=== PATIENT | female | born 1975 ===

== ENCOUNTER 2023-12-16 07:44 | Day surgery (SDC) | payer OTHER ==
[~2023-12-16] VITALS: Ht 165.1 cm; Wt 58.1 kg
[2023-12-16] MEDS ORDERED: fentaNYL citrate 0.05 MG/ML VIAL ONE (08:33)
[2023-12-16] MEDS ORDERED: LIDOCAINE 2% 100 MG/5 ML UJET TP ONE (08:33)
[2023-12-16] MEDS ORDERED: fentaNYL citrate 0.05 MG/ML VIAL IVP ONE (09:50)
== END 2023-12-16 10:20 | disposition home or self-care (01) ==
LOC: MMU 07:44 → MDS 07:44
PROVIDERS: ATTEND Internal Medicine Gastroenterology
DX: Z12.11 Encounter for screening for malignant neoplasm of colon (principal); K57.30 Diverticulosis of large intestine without perforation or abscess without bleeding; K64.9 Unspecified hemorrhoids; F41.9 Anxiety disorder, unspecified; E78.5 Hyperlipidemia, unspecified; Z79.899 Other long term (current) drug therapy
CPT/HCPCS: 45378; J3010